=== PATIENT | male | born 1990 | race Caucasian/White ===

== ENCOUNTER → 2021-04-19 | Outpatient (CLI) | payer OTHER | END | disposition home or self-care (01) | LOC: COVID19 16:39 | PROVIDERS: ATTEND Internal Medicine | DX: Z11.52 Encounter for screening for COVID-19 (principal) ==

== ENCOUNTER → 2021-08-02 | Outpatient (CLI) | payer OTHER | END | disposition home or self-care (01) | LOC: COVID19 16:41 | PROVIDERS: ATTEND Student in an Organized Health Care Education/Training Program | DX: U07.1 COVID-19 (principal) ==

== ENCOUNTER 2021-08-28 11:13 | Emergency (ER) | payer SELFPAY ==
[~2021-08-28] VITALS: Ht 177.8 cm; Wt 54.4 kg
[2021-08-28] MEDS ORDERED: IBUPROFEN600 MG PO (13:10)
== END 2021-08-28 13:27 | disposition home or self-care (01) ==
LOC: ED 11:13
DX: M25.511 Pain in right shoulder (principal); X50.0XXA Overexertion from strenuous movement or load, initial encounter; Y93.89 Activity, other specified; Y92.89 Other specified places as the place of occurrence of the external cause; Y99.8 Other external cause status

== ENCOUNTER 2024-06-01 08:20 | Emergency (ER) | payer OTHER ==
[~2024-06-01] VITALS: Ht 177.8 cm; Wt 54.4 kg
[~2024-06-01 08:20] MED LIST: IBUPROFEN600 MG PO
[2024-06-01] MEDS ORDERED: Amoxicillin/Clavulanate Pota 875 MG TAB PO ONE (09:10)
[2024-06-01] MEDS ORDERED: Acetaminophen/Oxycodone 5 MG/325 MG TABLET PO ONE (09:10)
[2024-06-01] MEDS ORDERED: AMOX-CLAV 875-1 EACH PO (09:16)
== END 2024-06-01 09:24 | disposition home or self-care (01) ==
LOC: ED 08:20
DX: K04.7 Periapical abscess without sinus (principal); R22.0 Localized swelling, mass and lump, head; F17.290 Nicotine dependence, other tobacco product, uncomplicated